=== PATIENT | female | born 1975 | race Hispanic/Latino ===

== ENCOUNTER 2017-07-21 03:52 | Emergency (ER) | payer SELFPAY ==
[2017-07-21] MEDS ORDERED: HYDROXYZINE HCL 25 MG TABLET ONE (06:22)
[2017-07-21] MEDS ORDERED: METHYLPREDNISOLONE SOD SUCC 40MG/ML 1ML ONE ×2 (06:22→06:24)
[2017-07-21] MEDS ORDERED: FAMOTIDINE/PF 20 MG/2 ML VIAL IV ONE (06:23)
[2017-07-21] MEDS ORDERED: NEOMY SULF/BACITRA/POLYMYXIN B 1 EACH PACKET TP ONE (06:23)
[2017-07-21] MEDS ORDERED: TRAMADOL HCL 50 MG TABLET ONE (08:22)
[2017-07-21] MEDS ORDERED: ONDANSETRON ODT 4 MG TAB ONE (08:22)
[2017-07-21] MEDS ORDERED: MORPHINE SULFATE 2 MG/ML 1ML SYG ONE (08:22)
== END 2017-07-21 09:43 | disposition home or self-care (01) ==
LOC: EDH 03:52
DX: R21 Rash and other nonspecific skin eruption (principal); Z72.0 Tobacco use
CPT/HCPCS: 96374; 96375; 99284; J2920 ×2; J3490

== ENCOUNTER 2017-09-26 20:54 | Emergency (ER) | payer SELFPAY ==
[2017-09-26] MEDS ORDERED: FAMOTIDINE 20MG TAB 20 MG TAB ONE (22:09)
[2017-09-26] MEDS ORDERED: DIPHENHYDRAMINE HCL 25 MG CAPSULE ONE (22:09)
[2017-09-26] MEDS ORDERED: DEXAMETHASONE SOD PHOSPHATE 10MG/ML 1ML VIAL ONE (22:09)
== END 2017-09-26 21:41 | disposition home or self-care (01) ==
LOC: EDH 20:54
DX: L30.9 Dermatitis, unspecified (principal); Z98.890 Other specified postprocedural states; Z72.0 Tobacco use
CPT/HCPCS: 96372; 99283; J1100; Q0163

== ENCOUNTER 2017-10-02 07:28 | Emergency (ER) | payer SELFPAY ==
[2017-10-02] MEDS ORDERED: ONDANSETRON HCL 4 MG/2 ML VIAL ONE (07:49)
[2017-10-02] MEDS ORDERED: ACETAMINOPHEN EXTRA STRENGTH 500 MG TABLET ONE (07:49)
[2017-10-02] MEDS ORDERED: SODIUM CHLORIDE 0.9% 1000ML 2,000 ML IV ONE (07:49)
[2017-10-02 07:56] LABS: BASOPHILS % (AUTO) 0.7 % (0.0-5.0); HEMATOCRIT 41.8 % (36-48); LYMPHOCYTES % (AUTO) 6.7 % (21.0-51.0); MEAN CORPUSCULAR HEMOGLOBIN 30.7 pg (27.0-33.0); MEAN CORPUSCULAR HGB CONC 34.2 g/dL (32.0-36.0); MEAN CORPUSCULAR VOLUME 89.6 fL (79-99); MONOCYTES % (AUTO) 3.6 % (3.0-13.0); NUCLEATED RED BLOOD CELLS 0.1 % (0.0-0.19); PLATELET COUNT (AUTO) 292 K/uL (130-400); RED BLOOD CELL COUNT(AUTO) 4.67 MIL/uL (4.00-5.50); RED CELL DISTRIBUTION WIDTH 13.6 % (11.0-15.5); WHITE BLOOD COUNT (AUTO) 12.5 K/uL (4.8-10.8)
[2017-10-02 08:04] LABS: CREATININE 0.9 mg/dL (0.5-1.5); POTASSIUM 3.5 mmol/L (3.5-5.1)
[2017-10-02 08:06] LABS: APPEARANCE,URINE Cloudy (CLEAR); BILIRUBIN,URINE Negative (NEGATIVE); COLOR,URINE Yellow (YELLOW); GLUCOSE, URINE (UA) Negative (NEGATIVE); KETONES,URINE Negative (NEGATIVE); LEUKOCYTE ESTERASE ,URINE Trace (NEGATIVE); NITRATE,URINE Negative (NEGATIVE); OCCULT BLOOD,URINE Negative (NEGATIVE); PROTEIN,URINE POS 1+ (NEGATIVE)
[2017-10-02 08:12] LABS: ALBUMIN 3.8 g/dL (3.5-5.0); BILIRUBIN,TOTAL 0.5 mg/dL (0.2-1.0)
[2017-10-02 08:14] LABS: BACTERIA,URINE Rare /HPF (None Seen); RBC,URINE 0-1 /HPF (0-1); WBC,URINE 0-1 /HPF (0-1)
[2017-10-02 08:15] LABS: MUCUS,URINE Few LPF (None Seen); SQUAMOUS EPITHELIAL CELL,UR Moderate /HPF (0-2)
[2017-10-02] MEDS ORDERED: KETOROLAC TROMETHAMINE 30MG/ML ONE (08:43)
[2017-10-02] MEDS ORDERED: OSELTAMIVIR PHOSPHATE 75 MG CAP ONE (10:31)
== END 2017-10-02 11:40 | disposition home or self-care (01) ==
LOC: EDH 07:28
DX: E86.0 Dehydration (principal); R11.10 Vomiting, unspecified; R50.9 Fever, unspecified; M79.1 Myalgia; J02.9 Acute pharyngitis, unspecified; R51 Headache; R42 Dizziness and giddiness; R05 Cough; Z87.891 Personal history of nicotine dependence
CPT/HCPCS: 36415; 71046; 80053; 81001; 81025; 83605 ×2; 85025; 87040 ×2; 87804 ×2; 96361; 96374; 96375; 99285; J1885; J2405; J7030

== ENCOUNTER 2020-02-01 11:40 | Emergency (ER) | payer OTHER | END 2020-02-01 12:22 | disposition home or self-care (01) | LOC: EDH 11:40 | DX: L03.818 Cellulitis of other sites (principal); Z98.890 Other specified postprocedural states; Z72.0 Tobacco use ==

== ENCOUNTER 2020-02-03 11:23 | Emergency (ER) | payer OTHER ==
[2020-02-03] MEDS ORDERED: ACETAMINOPHEN 325 MG TAB ONE (12:12)
[2020-02-03] MEDS ORDERED: VANCOMYCIN 1GM+NS 250ML 250 ML IV ONE (12:16)
[2020-02-03 12:19] LABS: BASOPHILS % (AUTO) 0.5 % (0.0-5.0); EOSINOPHILS % (AUTO) 9.1 % (0.0-8.0); HEMATOCRIT 39.2 % (36-48); LYMPHOCYTES % (AUTO) 31.4 % (21.0-51.0); MEAN CORPUSCULAR HEMOGLOBIN 29.6 pg (27.0-33.0); MEAN CORPUSCULAR HGB CONC 32.1 g/dL (32.0-36.0); MEAN CORPUSCULAR VOLUME 92.2 fL (79-99); MONOCYTES % (AUTO) 8.5 % (3.0-13.0); NEUTROPHILS % (AUTO) 50.2 % (40.0-77.0); PLATELET COUNT (AUTO) 258 K/uL (130-400); RED BLOOD CELL COUNT(AUTO) 4.25 MIL/uL (4.00-5.50); WHITE BLOOD COUNT (AUTO) 7.4 K/uL (4.8-10.8)
[2020-02-03 12:24] LABS: CREATININE 0.7 mg/dL (0.5-1.5); POTASSIUM 4.1 mmol/L (3.5-5.1)
[2020-02-03 12:28] LABS: ALBUMIN 3.6 g/dL (3.5-5.0); BILIRUBIN,TOTAL 0.1 mg/dL (0.2-1.0); TOTAL PROTEIN, SERUM 7.2 g/dL (6.0-8.3)
[2020-02-03] MEDS ORDERED: ONDANSETRON HCL 4 MG/2 ML VIAL ONE (13:31)
== END 2020-02-03 15:37 | disposition home or self-care (01) ==
LOC: EDH 11:23
DX: L03.818 Cellulitis of other sites (principal); Z72.0 Tobacco use
CPT/HCPCS: 36415; 80053; 85025; 87070; 87076; 87077; 87186; 96365; 96366; 96375; 99284; J2405; J3370

== ENCOUNTER 2021-10-24 12:05 | Inpatient (IN) | payer OTHER ==
[~2021-10-24] VITALS: Ht 154.9 cm; Wt 79.5 kg
[2021-10-24 12:49] LABS: BASOPHILS % (AUTO) 0.4 % (0.0-5.0); EOSINOPHILS % (AUTO) 5.9 % (0.0-8.0); HEMATOCRIT 43.3 % (36-48); LYMPHOCYTES % (AUTO) 20.7 % (21.0-51.0); MEAN CORPUSCULAR HEMOGLOBIN 29.3 pg (27.0-33.0); MEAN CORPUSCULAR HGB CONC 32.6 g/dL (32.0-36.0); MONOCYTES % (AUTO) 6.5 % (3.0-13.0); NEUTROPHILS % (AUTO) 66.1 % (40.0-77.0); PLATELET COUNT (AUTO) 277 K/uL (130-400); RED BLOOD CELL COUNT(AUTO) 4.81 MIL/uL (4.00-5.50); RED CELL DISTRIBUTION WIDTH 12.8 % (11.0-15.5)
[2021-10-24 13:10] LABS: CREATININE 0.6 mg/dL (0.5-1.5); POTASSIUM 3.9 mmol/L (3.5-5.1)
[2021-10-24 13:17] LABS: ALBUMIN 3.7 g/dL (3.5-5.0); BILIRUBIN,TOTAL 0.1 mg/dL (0.2-1.0); TOTAL PROTEIN, SERUM 7.5 g/dL (6.0-8.3)
[2021-10-24] MEDS ORDERED: VANCOMYCIN 1G VIAL IVPB SCH (14:00)
[2021-10-24] MEDS ORDERED: 0.9% NACL 250ML IV SCH (14:00)
[2021-10-24] MEDS ORDERED: VANCOMYCIN 1G/250ML KIT 250 ML IV ONE (14:30)
[2021-10-24 14:58] LABS: INR 0.93 (0.85-1.15); PROTHROMBIN TIME 10.1 SEC (9.6-11.6)
[2021-10-24 15:00] LABS: PARTIAL THROMBOPLASTIN TIME 28.6 SEC (26.3-35.5)
[2021-10-24] MEDS ORDERED: CEFEPIME HCL 2 GM VIAL IVP SCH (15:00)
[2021-10-24] MEDS ORDERED: KETOROLAC 15MG/ML VIAL (15MG/ML) IV PRN (15:00)
[2021-10-24 15:06] LABS: CRP QUANTITATIVE 7.3 mg/L (0.00-9.0)
[2021-10-24] MEDS: PANTOPRAZOLE 40 MG/VIAL IVP SCH (15:44)
[2021-10-24] MEDS: LACTATED RINGERS 1000ML 1,000 ML IV SCH (15:44)
[2021-10-24 17:53] LABS: APPEARANCE,URINE Clear (CLEAR); BILIRUBIN,URINE Negative (NEGATIVE); COLOR,URINE Yellow (YELLOW); GLUCOSE, URINE (UA) Negative (NEGATIVE); KETONES,URINE Negative (NEGATIVE); LEUKOCYTE ESTERASE ,URINE Negative (NEGATIVE); NITRATE,URINE Negative (NEGATIVE); OCCULT BLOOD,URINE Negative (NEGATIVE); PROTEIN,URINE Negative (NEGATIVE); UROBILINOGEN,URINE 0.2 mg/dL (0.2-1.0)
[2021-10-24 18:00] LABS: AMPHET/METH SCREEN,URINE NEGATIVE (NEGATIVE); BARBITURATE SCREEN, URINE NEGATIVE (NEGATIVE); BENZODIAZEPINES SCREEN,URINE NEGATIVE (NEGATIVE); CANNABINOID SCREEN,URINE POSITIVE (NEGATIVE); COCAINE SCREEN,URINE NEGATIVE (NEGATIVE); OPIATE SCREEN,URINE NEGATIVE (NEGATIVE); PHENCYCLIDINE SCREEN,URINE NEGATIVE (NEGATIVE)
[2021-10-24 18:15] LABS: BACTERIA,URINE Rare /HPF (None Seen); MUCUS,URINE Few LPF (None Seen); RBC,URINE 0-1 /HPF (0-1); SQUAMOUS EPITHELIAL CELL,UR Moderate /HPF (0-2); WBC,URINE 0-1 /HPF (0-1)
[2021-10-24] MEDS: MEROPENEM 1 GM VIAL IVP SCH ×2 (19:24→19:25)
[2021-10-24] MEDS ORDERED: ACETAMINOPHEN 325 MG TAB PO PRN (19:30)
[2021-10-24] MEDS: DOCUSATE SODIUM 100 MG CAP PO SCH (19:39)
[2021-10-24] MEDS: TRAMADOL HCL 50 MG TABLET PO PRN (19:40)
[2021-10-24] MEDS ORDERED: ONDANSETRON 4MG INJ IVP PRN (22:00)
[2021-10-24] MEDS ORDERED: METRONIDAZOLE 500MG/100ML BAG 100 ML IVPB SCH (22:00)
[2021-10-24] MEDS ORDERED: DiphenhydrAMINE HCL 50 MG/ML VIAL IV ONE (22:00)
[2021-10-24 22:20] VITALS: BP 117/47
[2021-10-25] VITALS (7 sets, daily range): BP systolic 96–136; BP diastolic 51–91
[2021-10-25] MEDS: LACTATED RINGERS 1000ML 1,000 ML IV SCH (04:51)
[2021-10-25] MEDS: HYDROMORPHONE 0.5 MG SYG (0.5MG/0.5ML) IVP PRN ×2 (05:33→19:43)
[2021-10-25] MEDS: MEROPENEM 1 GM VIAL IVP SCH ×3 (05:33→23:02)
[2021-10-25 06:38] LABS: BASOPHILS % (AUTO) 0.1 % (0.0-5.0); EOSINOPHILS % (AUTO) 6.3 % (0.0-8.0); HEMATOCRIT 40.9 % (36-48); LYMPHOCYTES % (AUTO) 24.9 % (21.0-51.0); MEAN CORPUSCULAR HEMOGLOBIN 29.2 pg (27.0-33.0); MEAN CORPUSCULAR HGB CONC 32.3 g/dL (32.0-36.0); MEAN CORPUSCULAR VOLUME 90.5 fL (79-99); NEUTROPHILS % (AUTO) 61.5 % (40.0-77.0); PLATELET COUNT (AUTO) 239 K/uL (130-400); RED BLOOD CELL COUNT(AUTO) 4.52 MIL/uL (4.00-5.50); WHITE BLOOD COUNT (AUTO) 8.5 K/uL (4.8-10.8)
[2021-10-25 06:50] LABS: ALBUMIN 3.1 g/dL (3.5-5.0); BILIRUBIN,TOTAL 0.3 mg/dL (0.2-1.0); CREATININE 0.7 mg/dL (0.5-1.5); CRP QUANTITATIVE 10.7 mg/L (0.00-9.0); POTASSIUM 4.2 mmol/L (3.5-5.1)
[2021-10-25] MEDS ORDERED: VANCOMYCIN PROTOCOL PER PHARMACY IV SCH (07:00)
[2021-10-25] MEDS ORDERED: VANCOMYCIN 1G/250ML KIT 250 ML IV SCH ×2 (07:30→21:00)
[2021-10-25] MEDS: DOCUSATE SODIUM 100 MG CAP PO SCH ×2 (10:34→19:43)
[2021-10-25] MEDS ORDERED: DiphenhydrAMINE HCL 50 MG/ML VIAL ONE (10:59)
[2021-10-25] MEDS ORDERED: SOLU-MEDROL 40MG VIAL ONE (10:59)
[2021-10-25] MEDS ORDERED: SOLU-MEDROL 125MG VIAL ONE (11:02)
[2021-10-25] MEDS ORDERED: SOLU-MEDROL 125MG VIAL IVP STA (11:18)
[2021-10-25] MEDS: PANTOPRAZOLE 40 MG/VIAL IVP SCH (15:35)
[2021-10-25] MEDS: TRAMADOL HCL 50 MG TABLET PO PRN (15:37)
[2021-10-25 20:06] LABS: HEPATITIS B SURFACE ANTIGEN Non-Reactive (Negative)
[2021-10-25 20:07] LABS: HEPATITIS A IGM ANTIBODY Non-Reactive (Negative); HEPATITIS B CORE IGM ANTIBODY Non-Reactive (Negative); HEPATITIS C ANTIBODY Non-Reactive (NEGATIVE)
[2021-10-25] MEDS: DiphenhydrAMINE HCL 50 MG/ML VIAL IV PRN (23:02)
[2021-10-26 04:30] VITALS: BP 120/73
[2021-10-26] MEDS: MEROPENEM 1 GM VIAL IVP SCH ×2 (06:25→14:37)
[2021-10-26 08:00] VITALS: BP 118/61
[2021-10-26] MEDS ORDERED: SOLU-MEDROL 40MG VIAL IVP SCH (08:30)
[2021-10-26] MEDS ORDERED: TERBINAFINE HCL 15 GM TUBE TP SCH (09:00)
[2021-10-26] MEDS: DOCUSATE SODIUM 100 MG CAP PO SCH ×2 (09:13→19:53)
[2021-10-26] MEDS: DiphenhydrAMINE HCL 50 MG/ML VIAL IV PRN ×2 (09:13→19:53)
[2021-10-26] MEDS: NYSTATIN 100000 UNIT/ML 5ML UDCUP PO SCH ×4 (09:13→21:00)
[2021-10-26] MEDS: LACTATED RINGERS 1000ML 1,000 ML IV SCH (09:14)
[2021-10-26 12:00] VITALS: BP 110/64
[2021-10-26] MEDS ORDERED: CETIRIZINE HCL 5 MG TABLET PO SCH (13:30)
[2021-10-26] MEDS: TRAMADOL HCL 50 MG TABLET PO PRN (14:18)
[2021-10-26] MEDS: PANTOPRAZOLE 40 MG/VIAL IVP SCH (14:36)
[2021-10-26 16:00] VITALS: BP 120/71
[2021-10-26 19:00] VITALS: BP 119/80
[2021-10-26] MEDS: TERBINAFINE HCL 15 GM TUBE TP SCH (21:24)
[2021-10-27] VITALS: BP 141/68
[2021-10-27] MEDS: MEROPENEM 1 GM VIAL IVP SCH ×4 (00:58→20:48)
[2021-10-27 04:00] VITALS: BP 109/53
[2021-10-27] MEDS: HYDROMORPHONE 0.5 MG SYG (0.5MG/0.5ML) IVP PRN (04:03)
[2021-10-27 04:05] LABS: BASOPHILS % (AUTO) 0.2 % (0.0-5.0); EOSINOPHILS % (AUTO) 0.4 % (0.0-8.0); HEMATOCRIT 39.1 % (36-48); LYMPHOCYTES % (AUTO) 23.5 % (21.0-51.0); MEAN CORPUSCULAR HEMOGLOBIN 28.7 pg (27.0-33.0); MEAN CORPUSCULAR VOLUME 89.9 fL (79-99); MONOCYTES % (AUTO) 6.5 % (3.0-13.0); NEUTROPHILS % (AUTO) 68.8 % (40.0-77.0); PLATELET COUNT (AUTO) 261 K/uL (130-400); RED BLOOD CELL COUNT(AUTO) 4.35 MIL/uL (4.00-5.50); RED CELL DISTRIBUTION WIDTH 12.7 % (11.0-15.5); WHITE BLOOD COUNT (AUTO) 14.1 K/uL (4.8-10.8)
[2021-10-27 04:38] LABS: ALBUMIN 3.3 g/dL (3.5-5.0); BILIRUBIN,TOTAL 0.2 mg/dL (0.2-1.0); CREATININE 0.6 mg/dL (0.5-1.5); POTASSIUM 4.2 mmol/L (3.5-5.1); TOTAL PROTEIN, SERUM 6.7 g/dL (6.0-8.3)
[2021-10-27 07:30] VITALS: BP 123/80
[2021-10-27] MEDS: DOCUSATE SODIUM 100 MG CAP PO SCH ×2 (09:21→20:48)
[2021-10-27] MEDS: NYSTATIN 100000 UNIT/ML 5ML UDCUP PO SCH ×4 (09:21→20:48)
[2021-10-27] MEDS: CETIRIZINE HCL 5 MG TABLET PO SCH (09:21)
[2021-10-27] MEDS: TERBINAFINE HCL 15 GM TUBE TP SCH ×2 (09:28→20:49)
[2021-10-27 11:00] VITALS: BP 112/70
[2021-10-27] MEDS: PANTOPRAZOLE 40 MG/VIAL IVP SCH (13:36)
[2021-10-27] MEDS: TRAMADOL HCL 50 MG TABLET PO PRN ×2 (13:43→21:56)
[2021-10-27 16:00] VITALS: BP 112/74
[2021-10-27 20:00] VITALS: BP 107/66
[2021-10-28] VITALS: BP 101/63
[2021-10-28 04:00] VITALS: BP 110/75
[2021-10-28] MEDS: DiphenhydrAMINE HCL 50 MG/ML VIAL IV PRN ×2 (04:29→10:03)
[2021-10-28] MEDS: MEROPENEM 1 GM VIAL IVP SCH (04:29)
[2021-10-28 04:55] LABS: BASOPHILS % (AUTO) 0.4 % (0.0-5.0); EOSINOPHILS % (AUTO) 4.8 % (0.0-8.0); HEMATOCRIT 39.3 % (36-48); MEAN CORPUSCULAR HEMOGLOBIN 29.3 pg (27.0-33.0); MEAN CORPUSCULAR HGB CONC 32.3 g/dL (32.0-36.0); MEAN CORPUSCULAR VOLUME 90.6 fL (79-99); MONOCYTES % (AUTO) 7.3 % (3.0-13.0); NEUTROPHILS % (AUTO) 47.2 % (40.0-77.0); PLATELET COUNT (AUTO) 258 K/uL (130-400); RED BLOOD CELL COUNT(AUTO) 4.34 MIL/uL (4.00-5.50); RED CELL DISTRIBUTION WIDTH 12.7 % (11.0-15.5); WHITE BLOOD COUNT (AUTO) 10.2 K/uL (4.8-10.8)
[2021-10-28 05:15] LABS: ALBUMIN 3.2 g/dL (3.5-5.0); BILIRUBIN,TOTAL 0.2 mg/dL (0.2-1.0); CREATININE 0.6 mg/dL (0.5-1.5); POTASSIUM 3.5 mmol/L (3.5-5.1); TOTAL PROTEIN, SERUM 6.4 g/dL (6.0-8.3)
[2021-10-28 07:30] VITALS: BP 95/59
[2021-10-28] MEDS: NYSTATIN 100000 UNIT/ML 5ML UDCUP PO SCH (08:41)
[2021-10-28] MEDS: DOCUSATE SODIUM 100 MG CAP PO SCH (08:41)
[2021-10-28] MEDS: CETIRIZINE HCL 5 MG TABLET PO SCH (08:41)
[2021-10-28] MEDS ORDERED: AMOX-426 PO (08:55)
[2021-10-28] MEDS: TERBINAFINE HCL 15 GM TUBE TP SCH (10:03)
[2021-10-28 11:00] VITALS: BP 90/48
[2021-10-31] MEDS ORDERED: CETI1SOL17 PO (13:41)
[2021-10-31] MEDS ORDERED: PRED20TA3 PO (13:41)
[2021-10-31] MEDS ORDERED: FAMO-136 PO (13:41)
== END 2021-10-28 12:25 | disposition home or self-care (01) | DRG 603 ==
LOC: EDH 12:05 → EDHIP 14:45 → 4DH 22:15
PROVIDERS: ADMIT Internal Medicine; ATTEND Internal Medicine
DX: L03.115 Cellulitis of right lower limb (principal); E86.0 Dehydration; D72.829 Elevated white blood cell count, unspecified; Z20.822 Contact with and (suspected) exposure to COVID-19; L30.9 Dermatitis, unspecified; Z98.51 Tubal ligation status; Z98.891 History of uterine scar from previous surgery
CPT/HCPCS: 36415; 73700; 80053; 80061; 80074; 80305; 81001; 81003; 82550; 83605; 84145; 84702; 85025; 85610; 85651; 85730; 86038; 86140; 86160; 86215; 86235; 86701; 87040; 87070; 87076; 87077; 87186; 87390; 87635; 87804; 93971; 99291; C9113; C9803; G0378; J1170; J1200; J2185; J2920; J2930; J3370; J7120

== ENCOUNTER 2021-11-07 15:17 | Emergency (ER) | payer OTHER ==
[~2021-11-07] VITALS: Ht 154.9 cm; Wt 74.8 kg
[~2021-11-07 15:17] MED LIST: AMOX-426 PO; CETI1SOL17 PO; FAMO-136 PO; PRED20TA3 PO
[2021-11-07] MEDS ORDERED: PRED5TAB PO (15:33)
[2021-11-07] MEDS ORDERED: CLOT15CR23 TP (15:33)
[2021-11-07 15:40] VITALS: BP 140/72
== END 2021-11-07 15:48 | disposition home or self-care (01) ==
LOC: EDH 15:17
DX: L30.1 Dyshidrosis [pompholyx] (principal); L03.115 Cellulitis of right lower limb; Z79.52 Long term (current) use of systemic steroids; Z88.1 Allergy status to other antibiotic agents